=== PATIENT | male | born 1965 | race Caucasian/White ===

== ENCOUNTER 2016-07-16 06:19 | Emergency (ER) | payer OTHER ==
[~2016-07-16] VITALS: Ht 177.8 cm; Wt 164.5 kg
[~2016-07-16 06:19] MED LIST: AMTUNK PO; SUMA50TA15 PO; VERA120T15 PO; [UNRECOGNIZED DRUG - OTHER]
[2016-07-16 06:23] VITALS: TEMP 36.8; Ht 177.8 cm; Wt 164.5 kg
[2016-07-16] MEDS ORDERED: AMIT75TA2 PO (06:39)
[2016-07-16] MEDS ORDERED: NAPR-1169 PO (06:39)
[2016-07-16] MEDS ORDERED: SIMV20TA5 PO (06:39)
[2016-07-16] MEDS ORDERED: VERA120T8 PO (06:39)
[2016-07-16] MEDS ORDERED: APR25 PO (06:41)
[2016-07-16] MEDS ORDERED: OMEP40CA41 PO (06:41)
[2016-07-16] MEDS ORDERED: CETI10TA84 PO (06:41)
[2016-07-16] MEDS ORDERED: NIAC500T7 PO (06:41)
[2016-07-16] MEDS ORDERED: SERT-234 PO (06:42)
[2016-07-16] MEDS ORDERED: OXYC1TAB3 PO (06:42)
[2016-07-16] MEDS ORDERED: VITATAB11 PO (06:43)
[2016-07-16] MEDS ORDERED: LISI-787 PO (06:45)
[2016-07-16] MEDS ORDERED: ELET20TA PO (06:45)
[2016-07-16 06:47] VITALS: O2SAT 94
--- NOTE | 2016-07-16 06:49 | EMERGENCY ROOM VISIT NOTE ---
History Report prepared by Tonio: Bryson Polanco Under the Supervision of: Dr. Dima Marcos M.D. First contact with patient: 06:37 Chief Complaint: CARDIAC ASSESSMENT Stated Complaint: CHEST PAIN Nursing Triage Summary: pt brought to main ED B9 by ALS services. 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 state pt had sudden onset of chest pain ~4:30am, "squeezing" in chest bilaterally radiating to left arm, rates 5/10. pt associated SOB. pt has hx of elevated chol and HTN. ALS gave three nitros and 4 baby asa. upon assessment, pt alert and oriented x4. pt states pain is 1/10 at this time, denies SOB at this time. denies n/v/dizziness. breathing WNL. lungs clear in all pickett. History of Present Illness The patient is a 51 year old male who presents to the Emergency Room with complaints of improving chest pain starting prior to arrival. The patient currently rates his discomfort as a 1/10 in severity. 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 The patient additionally complains of shortness of breath. The patient states that he was given Nitro and aspirin, and these took his pain away. The patient additionally states that he had some left arm pain and tingling in his left fingers. The patient states that he has had a stress test done in the past. He states that he is a previous smoker about 28 years ago, and he denies having diabetes Source of History: patient Onset: prior to arrival Position: chest Symptom Intensity: 1/10 Timing: other (improving) Modifying Factors (Relieving): other (Nitro and aspirin) Associated Symptoms: + SOB Note: Associated symptoms: Left arm pain Review of Systems See HPI for pertinent positives & negatives. A total of 10 systems reviewed and were otherwise negative. Past Medical & Surgical Medical Problems: (1) Hypertension Family History Cancer Diabetes mellitus Heart disease Hypertension Social History Smoking Status: Never Smoker Occupation Status: employed Current/Historical Medications Scheduled Amitriptyline Hcl (Elavil), 75 MG PO HS Cetirizine (Zyrtec), 10 MG PO DAILY Hydralazine Hcl (Apresoline), 25 MG PO TID Lisinopril/Hctz (Zestoretic 20MG/12.5MG), 2 TAB PO DAILY Naproxen (Naprosyn), 500 MG PO BID Niacinamide (Niacin), 500 MG PO TID Omeprazole (Prilosec), 40 MG PO DAILY Sertraline (Zoloft), 100 MG PO DAILY Simvastatin (Zocor), 20 MG PO HS Verapamil Hcl (Calan Sr Ext Rel), 120 MG PO BID Vitamins W/ Lipotropics (Lipoflavonoid), 1 TAB PO DAILY Scheduled PRN Eletriptan (Relpax), 20 MG PO DIRECTED PRN for Migraine Oxycodone Immediate Rel Tab (Roxicodone Ir), 1 TAB PO Q4H PRN for Pain Allergies Coded Allergies: No Known Allergies (Verified , 07/16/16) Physical Exam Vital Signs Date Time Temp Pulse Resp B/P Pulse Ox O2 Delivery O2 Flow Rate FiO2 07/16/16 08:55 67 18 113/71 94 Room Air 07/16/16 08:43 65 07/16/16 07:08 65 20 103/57 94 Room Air 07/16/16 06:47 94 Room Air 07/16/16 06:37 79 07/16/16 06:34 96 Room Air 07/16/16 06:27 96 Room Air 07/16/16 06:23 36.8 79 18 122/73 96 Room Air Physical Exam GENERAL: Patient is a healthy-appearing well-nourished HEAD: Normocephalic atraumatic EYES: Ocular movements intact pupils equal and react to light OROPHARYNX mucous membranes are moist no exudates present no erythema or edema present NECK: Supple no nuchal rigidity CHEST: Good equal expansion LUNGS: Clear and equal to auscultation CARDIAC: Normal S1 and S2 ABDOMEN: Soft nontender no guarding BACK: No CVA tenderness EXTREMITIES: No pain upon palpation normal muscle strength in all groups no clubbing cyanosis or edema NEURO: Patient is following commands is answering questions appropriately. Alert and oriented x3 Cranial Nerves 2-12 grossly intact Medical Decision & Procedures ER Provider Diagnostic Interpretation: X-ray results as stated below per interpretation by me and the radiologist: CHEST ONE VIEW PORTABLE HISTORY: Atypical CHEST PAIN COMPARISON: None. FINDINGS: No pneumothorax. No pleural effusions. The heart is borderline enlarged. Mild central pulmonary vascular congestion without overt edema. No focal lung consolidations to suggest pneumonia. IMPRESSION: Borderline enlargement of the cardiac silhouette with mild central pulmonary vascular congestion without overt edema. Electronically signed by: Nathan Magdaleno M.D. 07/16/2016 7:53 AM Dictated Date/Time: 07/16/2016 7:52 AM Laboratory Results 07/16/16 06:00 Red Blood Count 4.92, Mean Corpuscular Volume 90.9, Mean Corpuscular Hemoglobin 32.7, Mean Corpuscular Hemoglobin Concent 36.0, Mean Platelet Volume 8.9, Neutrophils (%) (Auto) 50.5, Lymphocytes (%) (Auto) 33.2, Monocytes (%) (Auto) 11.9, Eosinophils (%) (Auto) 3.4, Basophils (%) (Auto) 0.7, Neutrophils # (Auto ) 3.40, Lymphocytes # (Auto) 2.24, Monocytes # (Auto) 0.80, Eosinophils # (Auto ) 0.23, Basophils # (Auto) 0.05 07/16/16 06:00 Test 07/16/16 06:00 07/16/16 06:54 07/16/16 07:05 White Blood Count 6.74 K/uL (4.8-10.8) Red Blood Count 4.92 M/uL (4.7-6.1) Hemoglobin 16.1 g/dL (14.0-18.0) Hematocrit 44.7 % (42-52) Mean Corpuscular Volume 90.9 fL (80-100) Mean Corpuscular Hemoglobin 32.7 pg (25-34) Mean Corpuscular Hemoglobin Concent 36.0 g/dl (32-36) Platelet Count 216 K/uL (130-400) Mean Platelet Volume 8.9 fL (7.4-10.4) Neutrophils (%) (Auto) 50.5 % Lymphocytes (%) (Auto) 33.2 % Monocytes (%) (Auto) 11.9 % Eosinophils (%) (Auto) 3.4 % Basophils (%) (Auto) 0.7 % Neutrophils # (Auto) 3.40 K/uL (1.4-6.5) Lymphocytes # (Auto) 2.24 K/uL (1.2-3.4) Monocytes # (Auto) 0.80 K/uL (0.11-0.59) Eosinophils # (Auto) 0.23 K/uL (0-0.5) Basophils # (Auto) 0.05 K/uL (0-0.2) RDW Standard Deviation 43.4 fL (36.4-46.3) RDW Coefficient of Variation 13.1 % (11.5-14.5) Immature Granulocyte % (Auto) 0.3 % Immature Granulocyte # (Auto) 0.02 K/uL (0.00-0.02) Est Creatinine Clear Calc Drug Dose 143.9 ml/min Estimated GFR () 109.7 Estimated GFR (Non- 94.6 BUN/Creatinine Ratio 10.7 (10-20) Calcium Level 9.4 mg/dl (8.5-10.1) Total Bilirubin 0.4 mg/dl (0.2-1) Direct Bilirubin < 0.1 mg/dl (0-0.2) Aspartate Amino Transf (AST/SGOT) 84 U/L (15-37) Alanine Aminotransferase (ALT/SGPT) 142 U/L (12-78) Alkaline Phosphatase 76 U/L (45-117) Total Creatine Kinase 201 U/L (39-308) Creatine Kinase MB 1.3 ng/ml (0.5-3.6) Creatine Kinase MB Ratio 0.6 (0-3.0) Troponin I < 0.015 ng/ml (0-0.045) Total Protein 8.2 gm/dl (6.4-8.2) Albumin 3.8 gm/dl (3.4-5.0) Lipase 263 U/L (73-393) Bedside Hemoglobin 16.0 g/dl (14.0-18.0) Bedside Hematocrit 47 % (42-52) Bedside Sodium 142 mEq/L (135-144) Bedside Potassium 3.5 mEq/L (3.3-5.0) Bedside Chloride 98 mEq/L (101-112) Bedside Total CO2 31 mEq/l (24-31) Anion Gap 17.0 mmol/L (16-25) Bedside Blood Urea Nitrogen 10 mg/dl (7-18) Bedside Creatinine 0.8 mg/dl (0.6-1.3) Bedside Glucose (other) 87 mg/dl (70-99) Bedside Ionized Calcium (Una) 1.22 mmol/l (1.12-1.32) Bedside D-Dimer 217 ng/mlFEU (0-450) Labs reviewed by ED physician. Medications Administered Medications (Trade) Dose Ordered Sig/Krupa Route Start Time Stop Time Status Last Admin Dose Admin Potassium Chloride (Klor-Con M10) 40 meq NOW STAT PO 07/16/16 07:03 07/16/16 07:04 DC 07/16/16 07:28 40 MEQ ECG Indication: chest pain Rate (beats per minute): 78 Rhythm: normal sinus Findings: no acute ischemic change, no ectopy ED Course 0637: Past medical records reviewed. The patient was evaluated in room B9. A complete history and physical examination was performed. 0703: Potassium Chloride 40meq PO 1840: Upon reexamination the patient is resting comfortably. I discussed results and treatment plan with the patient. He verbalizes agreement and understanding. The patient is ready for discharge. Medical Decision Differential diagnosis: Etiologies such as cardiac ischemia, aortic dissection, pulmonary embolism, pneumonia, pneumothorax, musculoskeletal, infections, pericarditis, myocarditis , esophageal rupture, gastrointestinal, as well as others were entertained. This is a 51-year-old male who presents emergency department complaining of chest pain. The patient's chest pain was relieved by nitroglycerin as well as aspirin. Upon arrival to the emergency department he is pain-free. He has a normal EKG as well as a normal CK-MB and troponin function. Based on these findings I strongly recommended that the patient be admitted to the hospitalist service however he is adamantly refusing. I recommended close follow-up with cardiology. Patient was in agreement with the treatment plan. Impression Primary Impression: Precordial chest pain Scribe Attestation The scribe's documentation has been prepared under my direction and personally reviewed by me in its entirety. I confirm that the note above accurately reflects all work, treatment, procedures, and medical decision making performed by me. Departure Information Dispostion Home / Self-Care Referrals James Jiménez M.D. (PCP) Forms IMPORTANT VISIT INFORMATION Patient Instructions Chest Pain - [facility], [facility] Additional Instructions Need follow up with DR Prakash/Chava/Garcia's office You have been examined and treated today on an emergency basis only. This is not a substitute for, or an effort to provide, complete comprehensive medical care. It is impossible to recognize and treat all injuries or illnesses in a single emergency department visit. It is therefore important that you follow up closely with Dr Sanchez. Call as soon as possible for an appointment. Thank you for your time and consideration. I look forward to speaking with you again soon. Please don't hesitate to call us if you have any questions.
[2016-07-16] MEDS ORDERED: POTASSIUM CHLORIDE 10 MEQ TABCR PO STA (07:03)
[2016-07-16 07:12] LABS: ISTAT CREATININE 0.8 mg/dl (0.6-1.3); ISTAT IONIZED CALCIUM 1.22 mmol/l (1.12-1.32)
[2016-07-16 07:14] LABS: BASO % 0.7 %; BASO ABS # 0.05 K/uL (0-0.2); COMPLETE YES; EOS % 3.4 %; HEMATOCRIT 44.7 % (42-52); IG% 0.3 %; LYMPH % 33.2 %; LYMPH ABS # 2.24 K/uL (1.2-3.4); MEAN CELL VOLUME 90.9 fL (80-100); MEAN CORPUSCULAR HEMOGLOBIN 32.7 pg (25-34); MEAN PLATELET VOLUME 8.9 fL (7.4-10.4); MONO % 11.9 %; NEUT % 50.5 %; PLATELET COUNT 216 K/uL (130-400); RED BLOOD COUNT 4.92 M/uL (4.7-6.1); WHITE BLOOD COUNT 6.74 K/uL (4.8-10.8)
[2016-07-16 07:43] LABS: ALT/SGPT 142 U/L (12-78); BLOOD UREA NITROGEN 10 mg/dl (7-18); BUN/CREATININE RATIO 10.7 (10-20); CALCIUM 9.4 mg/dl (8.5-10.1); CARBON DIOXIDE 29 mmol/L (21-32); CHLORIDE 102 mmol/L (98-107); CREATININE 0.92 mg/dl (0.60-1.40); GLUCOSE 84 mg/dl (70-99); POTASSIUM 3.4 mmol/L (3.5-5.1); SODIUM 140 mmol/L (136-145)
[2016-07-16 07:49] LABS: ALKALINE PHOSPHATASE 76 U/L (45-117); AST/SGOT 84 U/L (15-37); CKMB/CK RATIO 0.6 (0-3.0)
--- NOTE | 2016-07-16 07:54 | DIAGNOSTIC IMAGING REPORT ---
CHEST ONE VIEW PORTABLE HISTORY: Atypical CHEST PAIN COMPARISON: None. FINDINGS: No pneumothorax. No pleural effusions. The heart is borderline enlarged. Mild central pulmonary vascular congestion without overt edema. No focal lung consolidations to suggest pneumonia. IMPRESSION: Borderline enlargement of the cardiac silhouette with mild central pulmonary vascular congestion without overt edema. Electronically signed by: Nathan Magdaleno M.D. 07/16/2016 7:53 AM Dictated Date/Time: 07/16/2016 7:52 AM
[2016-07-16 08:55] VITALS: BP 113/71; PULSE 67; O2SAT 94
[2016-12-03] MEDS ORDERED: POLYSOL4 OP (15:29)
== END 2016-07-16 08:56 | disposition home or self-care (01) ==
LOC: C.EDB 06:19 → EDBD 06:19 → C.EDB 08:56
DX: R07.2 Precordial pain (principal); E78.00 Pure hypercholesterolemia, unspecified; I10 Essential (primary) hypertension; Z87.891 Personal history of nicotine dependence; Z83.3 Family history of diabetes mellitus; Z82.49 Family history of ischemic heart disease and other diseases of the circulatory system

== ENCOUNTER 2016-10-10 05:07 | Emergency (ER) | payer OTHER ==
[~2016-10-10] VITALS: Ht 180.3 cm; Wt 158.7 kg
[~2016-10-10 05:07] MED LIST changes: +AMIT75TA2 PO; -AMTUNK PO; +APR25 PO; +CETI10TA84 PO; +ELET20TA PO; +LISI-787 PO; +NAPR-1169 PO; +NIAC500T7 PO; +OMEP40CA41 PO; +OXYC1TAB3 PO; +SERT-234 PO; +SIMV20TA5 PO; -SUMA50TA15 PO; -VERA120T15 PO; +VERA120T8 PO; +VITATAB11 PO; -[UNRECOGNIZED DRUG - OTHER]
[2016-10-10 05:14] VITALS: TEMP 36.5; Ht 180.3 cm; Wt 158.7 kg
[2016-10-10] MEDS ORDERED: CEFTRIAXONE SOD INJ 1 GM ADDVIAL IV STA (05:25)
[2016-10-10] MEDS ORDERED: DIPHTHERIA/TETANUS/PERTUSSIS 0.5 ML SYR/VIAL IM. ONE (05:30)
[2016-10-10 05:45] LABS: BASO % 0.2 %; BASO ABS # 0.02 K/uL (0-0.2); COMPLETE YES; EOS % 1.5 %; HEMATOCRIT 40.7 % (42-52); IG% 0.3 %; LYMPH % 19.1 %; LYMPH ABS # 1.81 K/uL (1.2-3.4); MEAN CELL VOLUME 92.7 fL (80-100); MEAN CORPUSCULAR HEMOGLOBIN 32.8 pg (25-34); MEAN CORPUSCULAR HGB CONC 35.4 g/dl (32-36); MEAN PLATELET VOLUME 8.9 fL (7.4-10.4); MONO % 10.9 %; PLATELET COUNT 156 K/uL (130-400); RED BLOOD COUNT 4.39 M/uL (4.7-6.1); WHITE BLOOD COUNT 9.49 K/uL (4.8-10.8)
[2016-10-10 06:01] LABS: BUN/CREATININE RATIO 11.6 (10-20); CREATININE 0.97 mg/dl (0.60-1.40); POTASSIUM 3.4 mmol/L (3.5-5.1)
[2016-10-10] MEDS ORDERED: POTASSIUM CHLORIDE 10 MEQ TABCR PO STA (06:04)
--- NOTE | 2016-10-10 06:24 | DIAGNOSTIC IMAGING REPORT ---
ULTRASOUND LEFT VENOUS DOPP LOWER EXT UNILAT CLINICAL HISTORY: Left leg pain and swelling COMPARISON STUDY: No previous studies for comparison. FINDINGS: Real-time and color flow Doppler imaging were performed. Flow was seen within the femoral, popliteal and calf veins with no intraluminal thrombus demonstrated. The saphenous vein is patent. Incidental note is made of a prominent fatty lymph node within the left groin measuring 59 x 21 x 58 mm. IMPRESSION: No evidence of left lower extremity DVT. Electronically signed by: Kirt Workman M.D. 10/10/2016 6:23 AM Dictated Date/Time: 10/10/2016 6:22 AM
--- NOTE | 2016-10-10 06:33 | EMERGENCY ROOM VISIT NOTE ---
History First contact with patient: 05:20 Chief Complaint: LEG PAIN,LEG INJURY Stated Complaint: LEFT LEG IS RED AND WARM History of Present Illness The patient is a 51 year old male who presents to the Emergency Room with complaints of left leg pain and swelling for the past day that is steadily getting worse. Patient called the family care doctor yesterday and was advised to go the ER. Tetanus is out of date. Patient denies chest pain, dyspnea, fever, chills, abdominal pain, injury to the area. He does not smoke. No history of PE or DVT. No recent antibiotics. No diabetes. Review of Systems See HPI for pertinent positives & negatives. A total of 10 systems reviewed and were otherwise negative. Past Medical/Surgical History Medical Problems: (1) Hypertension Family History Cancer Diabetes mellitus Heart disease Hypertension Social History Smoking Status: Former Smoker Drug Use: none Marital Status: Housing Status: lives with family Occupation Status: employed Current/Historical Medications Scheduled Amitriptyline Hcl (Elavil), 75 MG PO HS Cetirizine (Zyrtec), 10 MG PO DAILY Hydralazine Hcl (Apresoline), 25 MG PO TID Lisinopril/Hctz (Zestoretic 20MG/12.5MG), 2 TAB PO DAILY Naproxen (Naprosyn), 500 MG PO BID Niacinamide (Niacin), 500 MG PO TID Omeprazole (Prilosec), 40 MG PO DAILY Sertraline (Zoloft), 100 MG PO DAILY Simvastatin (Zocor), 20 MG PO HS Verapamil Hcl (Calan Sr Ext Rel), 120 MG PO BID Vitamins W/ Lipotropics (Lipoflavonoid), 1 TAB PO DAILY Scheduled PRN Eletriptan (Relpax), 20 MG PO DIRECTED PRN for Migraine Oxycodone Immediate Rel Tab (Roxicodone Ir), 1 TAB PO Q4H PRN for Pain Allergies Coded Allergies: No Known Allergies (Verified , 10/10/16) Physical Exam Vital Signs Date Time Temp Pulse Resp B/P Pulse Ox O2 Delivery O2 Flow Rate FiO2 10/10/16 05:14 36.5 70 18 188/110 96 Room Air Physical Exam VITALS: Vitals are noted on the nurse's note and reviewed by myself. Vital signs hypertensive. GENERAL: Pleasant morbidly obese male, in no acute distress, nondiaphoretic, well-developed well-nourished. SKIN: The skin was without rashes, or bruising. There is no tenting of the skin. Capillary reflex less than 2 seconds. HEAD: Normocephalic atraumatic. EARS: External auditory canals clear, tympanic membranes pearly williamson without erythema or effusion bilaterally. EYES: Pupils equal round and reactive to light and accommodation. Conjunctivae without injection, sclerae without icterus. Extraocular movements intact. NOSE: Patent, turbinates without inflammation or discharge. MOUTH: Mucous membranes moist. Pharynx without erythema or exudate. Uvula midline. Airway patent. Tongue does not deviate. NECK: Supple without nuchal rigidity. No lymphadenopathy. No thyromegaly. Cervical spine is nontender. No JVD. HEART: Regular rate and rhythm without murmurs gallops or rubs. LUNGS: Clear to auscultation bilaterally without wheezes, rales or rhonchi. No dullness to percussion. No retractions or accessory muscle use. ABDOMEN: Positive bowel sounds x 4. Normal tympanic percussion. Soft, protuberant, obese, nontender, without masses or organomegaly. Dale sign negative. No guarding or rebound tenderness. MUSCULOSKELETAL: No muscle atrophy noted. Left lower leg erythematous and edematous concerning for cellulitis, +1 pitting edema up to the mid tib-fib bilaterally. Pedal pulses +2 equal present bilaterally NEURO: Patient was alert and oriented to person place and time. Normal sensation to light and sharp touch. No focal neurological deficits. Medical Decision & Procedures Laboratory Results 10/10/16 05:37 Red Blood Count 4.39, Mean Corpuscular Volume 92.7, Mean Corpuscular Hemoglobin 32.8, Mean Corpuscular Hemoglobin Concent 35.4, Mean Platelet Volume 8.9, Neutrophils (%) (Auto) 68.0, Lymphocytes (%) (Auto) 19.1, Monocytes (%) (Auto) 10.9, Eosinophils (%) (Auto) 1.5, Basophils (%) (Auto) 0.2, Neutrophils # (Auto ) 6.46, Lymphocytes # (Auto) 1.81, Monocytes # (Auto) 1.03, Eosinophils # (Auto ) 0.14, Basophils # (Auto) 0.02 10/10/16 05:37 Test 10/10/16 05:37 10/10/16 05:41 White Blood Count 9.49 K/uL (4.8-10.8) Red Blood Count 4.39 M/uL (4.7-6.1) Hemoglobin 14.4 g/dL (14.0-18.0) Hematocrit 40.7 % (42-52) Mean Corpuscular Volume 92.7 fL (80-100) Mean Corpuscular Hemoglobin 32.8 pg (25-34) Mean Corpuscular Hemoglobin Concent 35.4 g/dl (32-36) Platelet Count 156 K/uL (130-400) Mean Platelet Volume 8.9 fL (7.4-10.4) Neutrophils (%) (Auto) 68.0 % Lymphocytes (%) (Auto) 19.1 % Monocytes (%) (Auto) 10.9 % Eosinophils (%) (Auto) 1.5 % Basophils (%) (Auto) 0.2 % Neutrophils # (Auto) 6.46 K/uL (1.4-6.5) Lymphocytes # (Auto) 1.81 K/uL (1.2-3.4) Monocytes # (Auto) 1.03 K/uL (0.11-0.59) Eosinophils # (Auto) 0.14 K/uL (0-0.5) Basophils # (Auto) 0.02 K/uL (0-0.2) RDW Standard Deviation 45.3 fL (36.4-46.3) RDW Coefficient of Variation 13.3 % (11.5-14.5) Immature Granulocyte % (Auto) 0.3 % Immature Granulocyte # (Auto) 0.03 K/uL (0.00-0.02) Anion Gap 5.0 mmol/L (3-11) Est Creatinine Clear Calc Drug Dose 135.3 ml/min Estimated GFR () 102.9 Estimated GFR (Non- 88.8 BUN/Creatinine Ratio 11.6 (10-20) Calcium Level 9.0 mg/dl (8.5-10.1) Bedside Lactic Acid Venous 0.55 mmol/L (0.90-1.70) Medications Administered Medications (Trade) Dose Ordered Sig/Krupa Route Start Time Stop Time Status Last Admin Dose Admin Ceftriaxone Sodium (Rocephin Inj) 1 gm NOW STAT IV 10/10/16 05:25 10/10/16 05:26 DC 10/10/16 05:48 1 GM Diphtheria/ Pertussis/Tetanus Vacc (Adacel Inj) 0.5 ml ONCE ONCE IM. 10/10/16 05:30 10/10/16 05:31 DC 10/10/16 05:49 0.5 ML ED Course Prior records reviewed and summarized as above. Triage Nursing notes reviewed. Additional history obtained from family The patient's history was concerning for swelling and redness of the skin. Differential diagnosis: Etiologies such as cellulitis, abscess, MRSA infection, DVT, necrotizing fasciitis, dermatitis, drug eruption, as well as others were entertained.. Physical examination: The physical examination was consistent with cellulitis ER treatment provided: Rocephin, tetanus On reassessment the patient felt better. Diagnostics interpreted by me: The labs revealed no worrisome leukocytosis. Stable H&H. Negative lactic acid Imaging studies: ULTRASOUND LEFT VENOUS DOPP LOWER EXT UNILAT CLINICAL HISTORY: Left leg pain and swelling COMPARISON STUDY: No previous studies for comparison. FINDINGS: Real-time and color flow Doppler imaging were performed. Flow was seen within the femoral, popliteal and calf veins with no intraluminal thrombus demonstrated. The saphenous vein is patent. Incidental note is made of a prominent fatty lymph node within the left groin measuring 59 x 21 x 58 mm. IMPRESSION: No evidence of left lower extremity DVT. Electronically signed by: Kirt Workman M.D. This appears to be isolated cellulitis. Patient was afebrile and nontoxic. He did not want to be admitted to the hospital. I felt this is reasonable. He was advised take antiemetics as directed and to follow-up tomorrow family care for reevaluation or here in the ER sooner for fevers, spreading infection, worsening signs or symptoms or as needed. Patient was advised to monitor his blood pressure. By the evaluation outlined above emergent etiologies such as abscess, necrotizing fasciitis, DVT, as well as others were deemed relatively unlikely. The pt informed about the findings as listed above. All questions were answered and pleased with the treatment. Return instructions were outlined and the patient was discharged in stable condition. Outpatient prescription management: Bactrim, Keflex Referral: The patient was referred back to primary care physician for follow-up in 2 to 3 days for a recheck of the current condition. Case reviewed with my attending Medical Decision As above Impression Primary Impression: Cellulitis of left lower leg Departure Information Dispostion Home / Self-Care Condition GOOD Referrals Ryan Sanchez M.D. (PCP) Patient Instructions [facility] Additional Instructions Monitor your blood pressure. It was high today. Cephalexin(Keflex) 500mg: Take one pill four times daily for 10 days for your skin infection. All antibiotics can cause diarrhea. If this occurs and you feel worse or it does not resolve in 1-2 days follow up with your doctor or return to the Emergency Department as this could be signs of serious underlying problems. Any medication can cause an allergic reaction, stop the pills immediately and return to the ER for rash, hives, breathing difficulties, or swelling. Trimethoprim-Sulfamethoxazole(Bactrim DS): Take one pill twice daily for 10 days for your skin infection. All antibiotics can cause diarrhea. If this occurs and you feel worse or it does not resolve in 1-2 days follow up with your doctor or return to the Emergency Department as this could be signs of serious underlying problems. Any medication can cause an allergic reaction, stop the pills immediately and return to the ER for rash, hives, breathing difficulties, or swelling. Ibuprofen(Motrin, Advil) may be used for fever or pain. Use 600mg every six hours as needed. Take with food. Avoid using more than 2400mg in a 24 hour period. Do not use 2400mg per day for more than three consecutive days without physician direction. Prolonged inappropriate use can lead to stomach upset or ulcers. (AND/OR) Acetaminophen(Tylenol) may be used for fever or pain. Use 1000mg every six hours as needed. Avoid using more than 3000mg in a 24 hour period. Warm compresses to the affected area 4 times daily for 15-20 minutes. Rest and drink plenty of fluids. Continue current medications. Return to the ER for severe pain, persistent fevers, spreading redness, or any worsening of your condition. Follow up with your primary physician within 2-3 days for a recheck of the current condition.
[2016-10-10 06:35] VITALS: BP 162/96; PULSE 76; O2SAT 97
[2016-10-10] MEDS ORDERED: SULF800T23 PO (06:37)
[2016-10-10] MEDS ORDERED: CEPH500C2 PO (06:37)
[2016-10-10] MEDS ORDERED: CEPHALEXIN 500MG HOME PACK 1 EA BTL PO ONE (06:45)
[2016-10-10] MEDS ORDERED: SEPTRA DS HOME PACK 1 EA VIAL PO ONE (06:45)
[2016-10-10] MEDS ORDERED: MECL-91 PO (06:52)
[2016-10-10] MEDS ORDERED: NTRGSL/4 UT (06:52)
[2016-12-03] MEDS ORDERED: POLYSOL4 OP (15:29)
== END 2016-10-10 06:50 | disposition home or self-care (01) ==
LOC: C.EDB 05:08 → C.EDA 06:50
DX: L03.116 Cellulitis of left lower limb (principal); I10 Essential (primary) hypertension; Z80.9 Family history of malignant neoplasm, unspecified; Z83.3 Family history of diabetes mellitus; Z82.49 Family history of ischemic heart disease and other diseases of the circulatory system; Z87.891 Personal history of nicotine dependence; Z79.899 Other long term (current) drug therapy

== ENCOUNTER → 2016-12-05 | Day surgery (SDC) | payer OTHER ==
[2016-12-03 15:08] VITALS: Ht 177.8 cm; Wt 162.7 kg
[~2016-12-05] VITALS: Ht 177.8 cm; Wt 162.7 kg
[~2016-12-05] MED LIST changes: +LABETALOL HCL IV 5 MG/ML 20ML IV ONE; +LIDOCAINE HCL 2% 2 ML VIAL (20MG/ML) ONE; +MECL-91 PO; +MIDAZOLAM HCL 1 MG/ML 2ML VIAL ONE; +NTRGSL/4 UT; -OMEP40CA41 PO; +POLYSOL4 OP; +PROPOFOL IV EMULSION 10 MG/ML 20 ML VIAL IV ONE; -SIMV20TA5 PO; +SODIUM CHLORIDE 0.9% 500ML 500 ML IV ONE
--- NOTE | 2016-12-05 09:09 | Endo History and Physical ---
History & Physical Date of Service: Dec 05, 2016. Chief Complaint: Diarrhea Referring Physician: Ryan Sanchez History of Present Illness Six months of diarrhea, family history of colon cancer Past Surgical History Hx Cardiac Surgery: No Hx Internal Defibrillator: No Hx Pacemaker: No Hx Abdominal Surgery: No Hx of Implantable Prosthesis: No Hx Post-Op Nausea and Vomiting: No Hx Cancer Surgery: No Hx Thoracic Surgery: No Hx Orthopedic: Yes (CTR, KNEE ARTHROSCOPY) Hx Urinary Tract Surgery: No Family History None Social History Smoking Status: Former Smoker Hx Substance Use: No Hx Alcohol Use: No Allergies Coded Allergies: No Known Allergies (Verified , 12/03/16) Current Medications Reported Home Medications Medications Dose Route/Sig Max Daily Dose Days Date Category Dose Instructions Systane (Polyethylene Glycol-Propylene) 1 Brandie Brandie 1 Drops OP QID 12/03/16 Reported Meclizine 25 (Meclizine HCl) 25 Mg Tab 25 Mg PO TID PRN 10/10/16 Reported Nitrostat (Nitroglycerin) 0.4 Mg Tab 0.4 Mg UT UD PRN 10/10/16 Reported Relpax (Eletriptan) 20 Mg Tab 20 Mg PO DIRECTED PRN 07/16/16 Reported take 1 as needed and may repeat in 2 hours if necessary Zestoretic 20MG/12.5MG (HCTZ/Lisinopril) Tab 2 Tab PO QAM 07/16/16 Reported Lipoflavonoid (Vitamins W/ Lipotropics) 1 Tab Tab 1 Tab PO DAILY 07/16/16 Reported Roxicodone Ir (Oxycodone HCl) 5 Mg Tab 1 Tab PO Q4H PRN 07/16/16 Reported Zoloft (Sertraline HCl) 100 Mg Tab 100 Mg PO QAM 07/16/16 Reported Apresoline (Hydralazine Hcl) 25 Mg Tab 25 Mg PO TID 07/16/16 Reported Niacin (Niacinamide) 500 Mg Tab 500 Mg PO TID 07/16/16 Reported Zyrtec (Cetirizine HCl) 10 Mg Tab 10 Mg PO QAM 07/16/16 Reported Naprosyn (Naproxen) 500 Mg Tab 500 Mg PO BID 07/16/16 Reported take with food Elavil (Amitriptyline Hcl) 75 Mg Tab 75 Mg PO HS 07/16/16 Reported Calan Sr Ext Rel (Verapamil Hcl) 120 Mg Tab 120 Mg PO BID 07/16/16 Reported Vital Signs Weight (Kilograms): 162.73 Height (Feet): 5 Height (Inches): 10 Date Time Temp Pulse Resp B/P (MAP) Pulse Ox O2 Delivery O2 Flow Rate FiO2 12/05/16 08:16 36.8 61 18 203/116 (145) 96 Room Air Physical Exam General Appearance: WD/WN, no apparent distress Respiratory/Chest: Auscultation: breath sounds normal, no wheezing Cardiovascular: Heart Auscultation: RRR, no murmurs Abdomen: Inspection & Palpation: soft, no tenderness, guarding & rebound Assessment and Plan Colonoscopy today.
--- NOTE | 2016-12-05 10:04 | Discharge Instructions ---
Endoscopy Patient Instructions Date / Procedure(s) Performed Dec 05, 2016. Colonoscopy Allergy Information Coded Allergies: No Known Allergies (Verified , 12/03/16) Discharge Date / Findings Dec 05, 2016. Polyp, diverticulosis. Biopsies pending. Medication Instructions Restart Stopped Medication(s): Restart medications today. Provider Instructions Activity Restrictions - No exercising or heavy lifting for 24 hours. - Do not drink alcohol the day of the procedure. - Do not drive a car or operate machinery until the day after the procedure. - Do not make any important decisions or sign important papers in 24 hours after the procedure. Following Day: - Return to full activity which may include returning to work/school. Diet Start your diet with liquids and light foods (jello, soup, juice, toast). Then eat your usual diet if not nauseated. Treatment For Common After Affects For mild abdominal pain, bloating, or excessive gas: - Rest - Eat lightly - Lie on right side Follow-Up Information Follow-up with Ryan Sanchez as scheduled Anesthesia Information What You Should Know You have had a procedure that required some medicine to reduce anxiety and discomfort. This treatment is called moderate sedation. After receiving the treatment, you may be sleepy, but you will be able to breathe on your own. The effects of the treatment may last for several hours. Follow these instructions along with Activity/Diet recommendations noted above: * Do NOT do anything where dizziness or clumsiness would be dangerous. * Rest quietly at home today, then you can be up and about tomorrow. * Have a responsible person stay with you the rest of today. * You may have had an I.V. today. If so, you may take the dressing off later today. Recommendations Call your doctor if: * Trouble breathing * Continuous vomiting for more than 24 hours * Temperature above 101 degrees * Severe abdominal pain or bloating * Pain not relieved by pain medicine ordered * There is increased drainage or redness from any incision * A large amount of rectal bleeding greater than 2-3 tablespoons. (If you had a polyp/s removed or have hemorrhoids, a small amount of blood - from the rectum is to be expected.) * You have any unanswered questions or concerns. IN THE EVENT OF A SERIOUS EMERGENCY, GO TO THE NEAREST EMERGENCY ROOM Your discharge instructions were prepared by provider Manuel Castellanos. Patient Instructions Signature Page Wang Shepard Patient (or Guardian) Signature/Date: I have read and understand the instructions given to me by my caregivers. Caregiver/RN/Doctor Signature/Date: The above-named patient and/or guardian has received patient instructions on this date. + Original Patient Signature Page (only) stays with chart. Please make copy for patient.
--- NOTE | 2016-12-05 10:09 | Anesthesiology Progress Note ---
Anesthesia Post Op Note Date & Time Dec 05, 2016 at 10:09 Vital Signs Pain Intensity: 8 Vital Signs Past 12 Hours Date Time Temp Pulse Resp B/P (MAP) Pulse Ox O2 Delivery O2 Flow Rate FiO2 12/05/16 08:16 36.8 61 18 203/116 (145) 96 Room Air Notes Mental Status: alert / awake / arousable, participated in evaluation Pt Amnestic to Procedure: Yes Nausea / Vomiting: adequately controlled Pain: adequately controlled Airway Patency, RR, SpO2: stable & adequate BP & HR: stable & adequate Hydration State: stable & adequate Anesthetic Complications: no major complications apparent
[2016-12-05 10:32] VITALS: BP 159/91; PULSE 54; O2SAT 95
--- NOTE | 2016-12-05 10:42 | GI REPORT ---
Procedure Date: 12/05/2016 9:13 AM Procedure: Colonoscopy Indications: Screening in patient at increased risk: Colorectal cancer in father 60 or older, Incidental - Chronic diarrhea Medicines: Propofol per Anesthesia Complications: No immediate complications. Estimated blood loss: None. Estimated Blood Loss: Estimated blood loss: none. Procedure: Pre-Anesthesia Assessment: - Prior to the procedure, a History and Physical was performed, and patient medications, allergies and sensitivities were reviewed. The patient's tolerance of previous anesthesia was reviewed. - ASA Grade Assessment: III - A patient with severe systemic disease. After I obtained informed consent, the scope was passed under direct vision. Throughout the procedure, the patient's blood pressure, pulse, and oxygen saturations were monitored continuously. The On-site loaner was introduced through the anus and advanced to the terminal ileum, with identification of the appendiceal orifice and IC valve. The colonoscopy was performed without difficulty. The patient tolerated the procedure well. The quality of the bowel preparation was adequate to identify polyps 6 mm and larger in size. Findings: A 5 mm polyp was found in the ascending colon. The polyp was flat. The polyp was removed with a cold snare. Resection and retrieval were complete. Multiple diverticula were found in the sigmoid colon. Normal mucosa was found in the entire colon. Biopsies for histology were taken with a cold forceps from the entire colon for evaluation of microscopic colitis. Fluid aspiration was performed through the scope suction channel. The amount of fluid collected was 10 mL. Sample(s) were sent for bacterial cultures, Clostridium difficile and ova and parasites. Verification of patient identification for the specimens was done by the physician and nurse using the patient's name, date and medical record number. Impression: - One 5 mm polyp in the ascending colon, removed with a cold snare. Resected and retrieved. - Diverticulosis in the sigmoid colon. - Normal mucosa in the entire examined colon. Biopsied. Fluid aspiration performed. - The colon was otherwise normal to the terminal ileum with retroflexed views of the colon and terminal ileum. Recommendation: - Await pathology results. - Use Citrucel one tablespoon PO daily. - Repeat colonoscopy in 3 - 5 years for surveillance based on pathology results. - Discharge patient to home (with escort). Manuel Castellanos M.D. Manuel Castellanos MD 12/05/2016 9:55:33 AM This report has been signed electronically. Note Initiated On: 12/05/2016 9:13 AM I attest to the content of the Intraoperative Record and orders documented therein, exceptions below
[2016-12-08 22:12] LABS: CRYPTOSPORIDIUM AG TC 37213 NOT DETECTED (NOT DETECTED); O&P GIARDIA AG NOT DETECTED (NOT DETECTED)
== END | disposition home or self-care (01) ==
LOC: C.GI 07:24
PROVIDERS: ATTEND Internal Medicine Gastroenterology
DX: Z12.11 Encounter for screening for malignant neoplasm of colon (principal); D12.2 Benign neoplasm of ascending colon; K57.30 Diverticulosis of large intestine without perforation or abscess without bleeding; K63.89 Other specified diseases of intestine; Z80.0 Family history of malignant neoplasm of digestive organs; Z87.891 Personal history of nicotine dependence; Z79.899 Other long term (current) drug therapy

== ENCOUNTER 2017-08-12 05:07 | Day surgery (SDC) | payer OTHER ==
[2017-08-11 09:23] VITALS: BMI 48.0
[~2017-08-12] VITALS: Ht 177.8 cm; Wt 152.7 kg
[~2017-08-12 05:07] MED LIST changes: +BUPR-79 PO; +FURO-85 PO; -LABETALOL HCL IV 5 MG/ML 20ML IV ONE; -LIDOCAINE HCL 2% 2 ML VIAL (20MG/ML) ONE; -LISI-787 PO; +LSN/2025 PO; -MIDAZOLAM HCL 1 MG/ML 2ML VIAL ONE; +MONT1TAB5 PO; +OXYC-57 PO; -OXYC1TAB3 PO; +POTA20TA16 PO; -PROPOFOL IV EMULSION 10 MG/ML 20 ML VIAL IV ONE; +SIMV20TA2 PO; -SODIUM CHLORIDE 0.9% 500ML 500 ML IV ONE; -VITATAB11 PO; +VNTHFA/IN INH
[2017-08-12 05:48] VITALS: BP 160/93; PULSE 58; TEMP 36.6; O2SAT 96; Ht 177.8 cm; Wt 152.7 kg
[2017-08-12] MEDS ORDERED: LACTATED RINGER'S 1000ML 1,000 ML IV SCH (06:00)
--- NOTE | 2017-08-12 06:51 | History & Physical Bridge Note ---
H&P Re-Evaluation Bridge Note: I have examined the patient, reviewed the History & Physical and in the interval since the performance of the History & Physical I have noted the following changes of clinical significance: No changes noted
[2017-08-12] MEDS ORDERED: FENTANYL CITRATE INJ 50 MCG/1 ML 2 ML VIAL ONE (06:55)
[2017-08-12] MEDS ORDERED: MIDAZOLAM HCL 1 MG/ML 2ML VIAL ONE (06:56)
[2017-08-12] MEDS ORDERED: EpHEDrine SULFATE INJ 50 MG/ML AMP IV PRN (07:00)
[2017-08-12] MEDS ORDERED: ONDANSETRON INJ 2 MG/ML 2 ML VIAL IV PRN (07:00)
[2017-08-12] MEDS ORDERED: ATROPINE SULFATE 0.1 MG/ML 5ML SYR IV PRN (07:00)
--- NOTE | 2017-08-12 07:17 | Discharge Instructions ---
Discharge Instructions Date of Service Aug 12, 2017. Visit Reason for Visit: Mediastinal Adenopathy Discharge Discharge Diagnosis / Problem: Mediastinal Adenopathy Discharge Goals Goal(s): Learn about illness Activity Recommendations Activity Limitations: as noted below 1. You may remove dressing in 3 days and shower thereafter. No tub baths. 2. Do not drive for 2-3 days. Anesthesia . Post Anesthesia Instructions: If you have had General Anesthesia or IV Sedation: * Do not drive today. * Resume driving when surgeon permits. * Do not make important decisions or sign legal documents today. * Call surgeon for: 1. Temperature elevations greater than 101 degrees F. 2. Uncontrollable pain. 3. Excessive bleeding. 4. Persistent nausea and vomiting. 5. Medication intolerance (nausea, vomiting or rash). * For nausea and vomiting use only clear liquids such as: tea, soda, bouillon until nausea subsides, then gradually increase diet as tolerated. * If you have any concerns or questions, call your surgeon's office. If physician is unavailable and it is an emergency, call 911 or go to the nearest emergency room. . Instructions / Follow-Up Instructions / Follow-Up 1. Keep your scheduled appointment with Dr. Dominguez on August 20, 2017 @10:30. Diet Recommendations Recommended Home Diet: resume previous diet Pending Studies Studies pending at discharge: no Medical Emergencies . Who to Call and When: Medical Emergencies: If at any time you feel your situation is an emergency, please call 911 immediately. . Non-Emergent Contact Non-Emergency issues call your: Surgeon Call Non-Emergent contact if: you have a fever, your pain is not controlled, wound has increased drainage . . "Provider Documentation" section prepared by Jun Headley. .
[2017-08-12] MEDS ORDERED: ROCURONIUM BROMIDE 10 MG/ML 5 ML VIAL IV ONE (07:47)
[2017-08-12] MEDS ORDERED: GLYCOPYRROLATE INJ 0.2 MG/ML VIAL ONE (07:47)
[2017-08-12] MEDS ORDERED: PROPOFOL IV EMULSION 10 MG/ML 20 ML VIAL IV ONE (07:47)
[2017-08-12] MEDS ORDERED: DEXAMETHASONE SOD INJ 4 MG/ML VIAL ONE (07:47)
[2017-08-12] MEDS ORDERED: LIDOCAINE HCL 2% 2 ML VIAL (20MG/ML) ONE (07:47)
[2017-08-12] MEDS ORDERED: ONDANSETRON INJ 2 MG/ML 2 ML VIAL ONE (07:47)
[2017-08-12] MEDS ORDERED: NEOSTIGMINE METHYLSULFATE 5 MG/5 ML SYR ONE (07:47)
[2017-08-12] MEDS ORDERED: SURGICEL ABSORB HEMOSTAT 2IN X 14IN TOP ONE (08:22)
--- NOTE | 2017-08-12 08:29 | [facility] Post Operative Brief Note ---
Immediate Operative Summary Operative Date Aug 12, 2017. Pre-Operative Diagnosis Marked mediastinal adenopathy Post-Operative Diagnosis Granulomatous disease Procedure(s) Performed Video Mediastinoscopy with Biopsy Surgeon Dr Dominguez Research Asst Surgeon(s) Reggie Headley PA-C Estimated Blood Loss 120ml Findings Consistent with Post-Op Diagnosis Specimens Frozen section #1 R4 lymph node sent out at 0801 Frozen section #2 R2 lymph node sent out at 0801 A. R4 lymph node B. R2 lymph node C. Level 7 lymph node Culture #1 mediastinal lymph nodes for gram stain, aerobic, anaerobic, fungal and AFB Anesthesia Type General
[2017-08-12] MEDS ORDERED: MoRPHine SULFATE 2 MG/ML CARP IV PRN (08:45)
[2017-08-12] MEDS ORDERED: OXYCODONE/ACETAMINOPHEN 5-325 TAB PO PRN (08:45)
[2017-08-12] MEDS: FENTANYL CITRATE INJ 50 MCG/1 ML 2 ML VIAL IV PRN ×2 (08:55→09:01)
--- NOTE | 2017-08-12 09:08 | OPERATIVE REPORT ---
DATE OF OPERATION: 08/12/2017 PREOPERATIVE DIAGNOSIS: Large mediastinal adenopathy. POSTOPERATIVE DIAGNOSIS: Granulomatous disease (mostly non-necrotizing with some areas of necrosis). PROCEDURE: Video mediastinoscopy, biopsy. SURGEON: Terrence Dominguez MD. SURVEYING CREW RODMAN: ELSY Abbott (Mr. Headley was present for the entire case and was instrumental in assisting as well and closed the skin at the conclusion). ANESTHESIA: General anesthesia with endotracheal intubation. INDICATION FOR PROCEDURE AND FINDINGS: Wang Sehpard is a 52-year-old male who has persistent dyspnea on exertion. He has had "my whole life in." He also has developed a cough and does have a history of cigarette smoking and when a x-ray showed possible interstitial lung disease, a CAT scan was obtained. This showed marked bulky adenopathy in the mediastinum. I evaluated him in the office this week. I was concerned he may have a lymphoma as he has night sweats also. He also has had weight loss. We elected to proceed with a video mediastinoscopy. DESCRIPTION OF PROCEDURE: On 08/12/2017, the patient underwent uncomplicated video mediastinoscopy. I biopsied the right level 2, right level 4 node in 2 areas as well as a level 7 node. Frozen section showed mostly non-necrotizing granulomas, although there were couple of areas of necrosis. We did send this for culture. Discussed this with Dr. Lucas Sen. He tolerated it well. DESCRIPTION OF THE PROCEDURE: The patient brought to operating room and laid in supine position. General anesthesia induced and endotracheal intubation was performed. After prepping and draping in usual sterile fashion, appropriate timeout was called. Prophylactic antibiotics were given. An incision was made one fingerbreadth above the sternal notch and this was dissected down to the pretracheal fascia. Went below the isthmus of the thyroid. It should be noted that the patient had distention of his superficial veins and there may have been some compression of his venous system due to this bulky adenopathy. There were some larger veins superficially which we avoided going in. Coming down, it could be seen there was a very hard right level 2 node which I biopsied several times. We also had a level 4 node along the right peritracheal area. There was also 1 more anterior and I biopsied these generously. Portions of this were sent for frozen section, the level 4 and level 2 nodes. I also biopsied the level 7. There really was very little bleeding noted in the areas of the biopsy. I packed a Ray-Fredrick packing while I was waiting for the frozen sections. Frozen section came back as representing probable non-necrotizing granulomas. I pulled the Ray-Fredrick out and we had some bleeding from the superficial veins. I put a couple of clips and then Bovied this and this controlled the bleeding nicely. I then removed the bronchoscope. There was no further bleeding. 3-0 Vicryl was used to close the strap muscles in a running fashion. I then used 4-0 Monocryl in running subcuticular fashion to approximate the wound edges. The patient tolerated it well and was extubated in the room. I attest to the content of the Intraoperative Record and any orders documented therein. Any exception s are noted below.
--- NOTE | 2017-08-12 09:09 | DIAGNOSTIC IMAGING REPORT ---
CHEST ONE VIEW PORTABLE HISTORY: 52 years-old Male mediastinoscopy mediastinal adenopathy status post mediastinoscopy COMPARISON: Chest radiograph 07/16/2016, CT chest 07/28/2017 TECHNIQUE: Portable AP view of the chest FINDINGS: Cardiac silhouette is enlarged. The patient is rotated to the right. Surgical clips now project over the upper mediastinum. There is no pneumothorax or large pleural effusion. Mediastinal widening compatible with adenopathy redemonstrated along with mild pulmonary vascular congestion and interstitial coarsening. Linear subsegmental right lateral midlung opacities suggest atelectasis. Bones of the chest appear grossly intact. IMPRESSION: 1. No evidence of postprocedural pneumothorax. 2. Persistent widening of the mediastinum compatible with patient's known adenopathy. 3. Cardiomegaly with pulmonary vascular congestion and bibasilar opacities suggesting atelectasis. The above report was generated using voice recognition software. It may contain grammatical, syntax or spelling errors. Electronically signed by: Avinash Urbina M.D. 08/12/2017 9:07 AM Dictated Date/Time: 08/12/2017 9:05 AM
[2017-08-12 09:27] VITALS: BP 158/78; PULSE 65; TEMP 36.6; O2SAT 94
--- NOTE | 2017-08-12 09:52 | Anesthesiology Progress Note ---
Anesthesia Post Op Note Date & Time Aug 12, 2017 at 09:52 Vital Signs Vital Signs Past 12 Hours Date Time Temp Pulse Resp B/P (MAP) Pulse Ox O2 Delivery O2 Flow Rate FiO2 08/12/17 09:17 16 08/12/17 09:16 36.2 155/99 08/12/17 09:12 72 18 98 08/12/17 09:12 72 18 08/12/17 09:11 150/92 08/12/17 09:07 68 12 98 08/12/17 09:07 68 12 08/12/17 09:06 159/85 08/12/17 09:02 69 10 08/12/17 09:02 69 10 97 08/12/17 09:01 131/79 08/12/17 08:57 77 18 98 08/12/17 08:57 77 18 08/12/17 08:56 150/99 08/12/17 08:52 79 20 98 08/12/17 08:52 79 20 08/12/17 08:51 159/90 08/12/17 08:50 77 16 159/90 98 Oxymask 7 08/12/17 08:42 36 85 16 160/92 98 Oxymask 7 08/12/17 05:48 36.6 58 20 160/93 (115) 96 Room Air Notes Mental Status: alert / awake / arousable, participated in evaluation Pt Amnestic to Procedure: Yes Nausea / Vomiting: adequately controlled Pain: adequately controlled Airway Patency, RR, SpO2: stable & adequate BP & HR: stable & adequate Hydration State: stable & adequate Anesthetic Complications: no major complications apparent
[2017-08-12 10:00] VITALS: BP 151/83; PULSE 74; O2SAT 97
[2017-08-12 10:29] VITALS: BP 147/82; PULSE 68; TEMP 36.8; O2SAT 92
== END 2017-08-12 10:40 | disposition home or self-care (01) ==
LOC: C.ACU 05:07
PROVIDERS: ATTEND Surgery
DX: I89.8 Other specified noninfective disorders of lymphatic vessels and lymph nodes (principal); J98.4 Other disorders of lung; R06.00 Dyspnea, unspecified; G47.33 Obstructive sleep apnea (adult) (pediatric); Z87.891 Personal history of nicotine dependence; Z98.890 Other specified postprocedural states; F32.9 Major depressive disorder, single episode, unspecified; Z68.42 Body mass index [BMI] 45.0-49.9, adult; E66.01 Morbid (severe) obesity due to excess calories; Z82.49 Family history of ischemic heart disease and other diseases of the circulatory system; Z80.42 Family history of malignant neoplasm of prostate; Z80.0 Family history of malignant neoplasm of digestive organs

== ENCOUNTER → 2017-10-12 | Outpatient (CLI) | payer OTHER ==
[~2017-10-12] MED LIST changes: -NIAC500T7 PO; +POTA-639 PO; -POTA20TA16 PO
--- NOTE | 2017-10-13 05:53 | PAP/PSG TECHNICIAN REPORT ---
[facility] Global Commodity Manager Polysomnogram Report Study name: None Report date: 10/13/2017 Study date: 10/12/2017 Referring Physician: Manuel Cramer MD Name: ZAIRA CROWLEY Interpreting Physician: Terrence Paez D.O. Date of : 1965 Global Commodity Manager: Quyen May [facility]. Sex: Male Age: 52 StudyType: PSG PAP Weight: 339 lbs Height: 52 years, Height 5' 10" BMI: 48.64 Medications: Amitriptyline 75 mg, Bupropion 150mg, Cetirizine 10 mg, Furosemide 20 mg, Hydralazine 50 mg, Lisinoprl-HCTZ 20-25 mg, Meclizine 25 mg, Montelukast Sodium 10 mg, Naproxen 500 mg, Niacin 500 mg, Nitroglycerin 0.4mg, Potassium Chloride 20 MEQ, Verapamil 120 mg, Zocor 20 mg, Zoloft 100 mg Patient History 52 yr. old male here for a BIPAP titration sleep study. Ky is currently on CPAP but is still having EDS. ESS 21/24. Parameters Monitored NPSG: E1-M2, E2-M1, Fp1-M2, Fp2-M1, F3-M2, F4-M2, F4-M1, C3-M2, C4-M2, C4-M1, O1-M2, O2-M2, O2-M1, T3-M2, T4-M1, P3-M2, P4-M1, CHIN1, CHIN2, HR, EKG, Legs, PFLOW, SNOR, FLOW, CFLOW, Tidal Volume, THOR, ABDO, SpO2, PLTH, CPRESS, ETCO2 Wave, ETCO2, pH Sleep Architecture Sleep Stages Time at Lights Off 9:42:49 PM STAGES Time (min.) TST (%) Time at Lights On 5:22:49 AM Wake 28.0 -- Total Recording Time (TRT) 460.00 min. N1 24.0 6 Total Sleep Period (TSP) 454.5 min. N2 279.0 65 Total Sleep Time (TST) 432.0min. N3 22.5 5 Awake Time 28.0 min. REM 106.5 25 Wake after Sleep Onset 22.5 min. Sleep Efficiency (SE) 94 % Sleep Onset Latency (BEATRIZ) 5.5 min. Number of Stage 1 Shifts None Awakenings 20 Stage Changes 76 Number of REM periods 6 REM 106.5 25 REM Latency 151.0 min. NREM 325.5 75 Body Position Analysis Supine Right Left Side Prone Vertical Total Sleep Time (min.) 164.9 127.7 151.0 278.66 0.0 3.6 Total Sleep Time (%) 35% 30% 35% 65 0% N/A% Total Sleep Time REM (min.) 39.5 51.5 15.5 None 0.0 0.0 Total Sleep Time NREM (min.) 113.8 76.2 135.5 None 0.0 0.0 Intermittent Wake (min.) 11.6 3.1 9.7 None 0.0 3.6 Total Sleep Period (%) 36% None None None None None Arousals Myoclonus (PLM) * Events Count Index Events Count Index Spontaneous 5 1 Events Awake (PLMW) 30 64.3 Respiratory 4 0.7 Events Asleep w/ Arousal (PLMA) 8 1.1 PLM 7 1 Events Asleep w/o Arousal (PLMS) 67 9.3 Snoring 7 1 Total Asleep 75 10.4 Total 23 3 Total 105 14 Respiratory Analysis * CA OA MA CH H RERA Total Count 0 4 0 0 34 1 38 Index 0.0 0.6 0.0 0 4.7 0 5.4 Mean Duration 0.0 16.6 0.0 0.00 26.3 12.0 24.9 Longest Duration 0.0 33.2 0.0 0.00 0.0 12.0 49.9 Respiratory Event Summary Total Supine ~Supine Right Left Prone REM NREM Apneas Count 4 4 0 0 0 N/A 2 2 Index 0.6 2 0 0.0 0.0 N/A 1 0 Hypopneas (4% Desat) Count 34 26 8 0 8 N/A 11 23 Index 4.7 10.2 2 0.0 3.2 N/A 6.2 4.2 Apneas & All Hypopneas Count 38 30 8 0 8 N/A 13 25 Index 5.3 12 2 0 3 N/A 7.3 4.6 Respiratory Events (Certified Professional Coder+All Hyp+RERA) Count 38 31 8 0 8 N/A 13 25 Index 5.4 12 2 0.0 3.2 N/A 7.3 4.8 Respiratory Related Arousal Count 4 31 0 0 0 N/A 1 4 Index 0.7 2 0 0 0 N/A 1 1 Snoring Analysis Supine Right Left Prone REM NREM Total Snore duration 31.5 min Snores count 564 2 764 N/A 73 1,257 1,330 Snore mean duration 1.4 Sec Snores index 221 1 304 N/A 41.1 231.7 184.7 TST with snoring (%) 7.3% Desaturation Event Summary: Minimum %SpO2 Event Count Mean/Min/Max Duration(sec.) Desaturation Index % Time In Bed > 90 40 30.2 / 10.8 / 58.5 7.6 69.2 86 - 90 4 32.9 / 12.0 / 54.5 1.7 30.8 81 - 85 0 N/A 0.0 0.1 76 - 80 0 N/A 0.0 0.0 71 - 75 0 N/A 0.0 0.0 66 - 70 0 N/A 0.0 0.0 61 - 65 0 N/A 0.0 0.0 56 - 60 0 N/A 0.0 0.0 51 - 55 0 N/A 0.0 0.0 < 50 0 N/A 0.0 0.0 Total REM NREM Awake <50% 0.0 min. 0.0 min. 0.0 min. 0.0 min. 51 - 60% 0.0 min. 0.0 min. 0.0 min. 0.0 min. 61 - 70% 0.0 min. 0.0 min. 0.0 min. 0.0 min. 71 - 80% 0.0 min. 0.0 min. 0.0 min. 0.0 min. 81 - 90% 141.3 min. 34.3 min. 105.7 min. 1.3 min. 91 - 100% 316.8 min. 72.2 min. 218.9 min. 25.7 min. Average 92 91 91 94 Minimum SpO2 82 85 82 87 Desaturation Event Index 5.7 7.9 5.2 4.3 # Desat. Events below 89% 9 4 5 N/A Time(%) with Saturation below 89% 4.9 1.1 3.8 0.1 Time(min.) with Saturation below 89% 22.4 4.9 17.2 0.3 Time (mins) REM (mins) NREM (mins) % of TST SpO2 Below 90% 28 12 N16 13.3 SpO2 Below 88% 5 0 0 0 Heart Rate Analysis Min (bpm) Max (bpm) Average (bpm) Awake 33 127 67 NREM 46 127 60 REM 46 77 56 Overall 46 127 59 Supplemental O2 Values Minimum O2 level: None Value Start Time End Time Global Commodity Manager Comments slept in the right, left, and supine positions. Cardiac arrhythmia noted. No PLMs noted. No bruxism noted. PAP initiated at an IPAP of +8 CMH2O and an EPAP of +4 CMH2O up-titrated to a level of: IPAP +16 CMH2O, EPAP +8 CMH20 BiFlex 2 , which nearly eliminated all respiratory events and snoring. Patients own Respironics DremWear was used during titration. did not wake to use the restroom during the night. stated, I tossed and turned a lot, I was not used to the bed. The final report will be interpreted and signed by a sleep physician. The completed physician report will then be placed in the patient medical record. Therapy Event: Therapy (cm H20) 0 8/4 9/4 10/4 11/4 12/4 Total Time at Pressure (min.) 2.3 20.0 38.5 46.8 13.0 13.4 TST at Pressure (min.) 0.0 13.3 38.5 39.2 10.5 13.4 # Periods 1 1 1 1 1 1 Sleep Onset (min.) N/A 3.2 0.0 0.0 2.5 0.0 REM Onset (min.) N/A N/A N/A N/A N/A N/A Sleep Efficiency % 0 66 100 83 81 100 Wakefulness (%) 100.0 33.6 0.0 16.1 18.9 0.0 Wakefulness (min.) 2.3 6.7 0.0 7.5 2.5 0.0 NREM 1 (%) 0.0 28.9 0.6 6.4 3.9 0.0 NREM 1 (min.) 0.0 5.8 0.2 3.0 0.5 0.0 NREM 2 (%) 0.0 37.5 93.5 67.3 77.2 100.0 NREM 2 (min.) 0.0 7.5 36.0 31.5 10.0 13.4 NREM 3 (%) 0.0 0.0 5.9 10.1 0.0 0.0 NREM 3 (min.) 0.0 0.0 2.3 4.7 0.0 0.0 REM (%) 0.0 0.0 0.0 0.0 0.0 0.0 REM (min.) 0.0 0.0 0.0 0.0 0.0 0.0 # Arousals N/A 5 0 5 1 1 Arousal Index N/A 22.6 0.0 7.6 5.7 4.5 # Snore N/A 103 524 268 43 103 Snore Index N/A 465.6 816.9 409.8 245.2 462.5 AHI N/A 4.5 3.1 19.9 5.7 18.0 AHI Supine N/A N/A N/A 29.3 5.7 18.0 AHI Non-Supine N/A 4.5 3.1 7.2 N/A N/A NREM AHI N/A 4.5 3.1 19.9 5.7 18.0 REM AHI N/A N/A N/A N/A N/A N/A RDI N/A 4.5 3.1 19.9 5.7 18.0 # Obstructive N/A 0 0 1 0 0 # Central Ap N/A 0 0 0 0 0 # Mixed N/A 0 0 0 0 0 # Hypopneas N/A 1 2 12 1 4 RERAS N/A 0 0 0 0 0 Total Respiratory Events N/A 1 2 13 1 4 Time Below SpO2 89.00% (min.) 0.0 0.4 1.7 0.3 0.1 0.1 Mean NREM SpO2 (%) N/A 92 90 93 95 94 Mean REM SpO2 (%) N/A N/A N/A N/A N/A N/A Mean Sleep SpO2 (%) N/A 92 90 93 95 94 Min NREM SpO2 (%) N/A 88 86 85 88 88 Min REM SpO2 (%) N/A N/A N/A N/A N/A N/A Position Supine (min.) 0.0 0.0 0.0 22.5 10.5 13.4 Position Non-supine (min.) 0.0 13.3 38.5 16.7 0.0 0.0 LM Index Sleep N/A 27.1 20.3 24.5 17.1 4.5 LM Index NREM N/A 27.1 20.3 24.5 17.1 4.5 LM Index REM N/A N/A N/A N/A N/A N/A Mean Heart Rate (bpm) N/A 67 67 63 59 59 Min Heart Rate (bpm) N/A 60 59 53 52 52 Therapy (cm H20) 13/4 14/6 15/6 16/7 16/8 Total Time at Pressure (min.) 23.6 19.9 12.9 191.2 78.5 TST at Pressure (min.) 22.1 19.4 12.9 185.2 77.5 # Periods 1 1 1 1 1 Sleep Onset (min.) 0.0 0.0 0.0 0.0 0.0 REM Onset (min.) 22.6 0.0 0.0 0.0 61.0 Sleep Efficiency % 93 97 100 96 98 Wakefulness (%) 6.4 2.5 0.0 3.1 1.3 Wakefulness (min.) 1.5 0.5 0.0 6.0 1.0 NREM 1 (%) 6.4 5.0 0.0 4.7 3.8 NREM 1 (min.) 1.5 1.0 0.0 9.0 3.0 NREM 2 (%) 83.2 0.0 0.0 53.3 75.2 NREM 2 (min.) 19.6 0.0 0.0 102.0 59.0 NREM 3 (%) 0.0 0.0 0.0 8.1 0.0 NREM 3 (min.) 0.0 0.0 0.0 15.5 0.0 REM (%) 4.1 92.5 100.0 30.7 19.7 REM (min.) 1.0 18.4 12.9 58.7 15.5 # Arousals 0 2 0 7 2 Arousal Index 0.0 6.2 0.0 2.3 1.5 # Snore 194 54 24 15 2 Snore Index 527.3 166.6 111.9 4.9 1.5 AHI 8.2 21.6 18.6 0.6 0.8 AHI Supine 8.2 21.6 18.6 0.0 N/A AHI Non-Supine N/A N/A N/A 0.9 0.8 NREM AHI 2.8 0.0 N/A 0.9 1.0 REM AHI 124.8 22.8 18.6 0.0 0.0 RDI 10.9 21.6 18.6 0.6 0.8 # Obstructive 3 0 0 0 0 # Central Ap 0 0 0 0 0 # Mixed 0 0 0 0 0 # Hypopneas 0 7 4 2 1 RERAS 1 0 0 0 0 Total Respiratory Events 4 7 4 2 1 Time Below SpO2 89.00% (min.) 0.0 2.2 0.5 0.7 16.3 Mean NREM SpO2 (%) 94 96 N/A 91 90 Mean REM SpO2 (%) 93 91 92 92 90 Mean Sleep SpO2 (%) 94 92 92 91 90 Min NREM SpO2 (%) 91 95 N/A 82 87 Min REM SpO2 (%) 89 85 87 88 88 Position Supine (min.) 22.1 19.4 12.9 52.6 0.0 Position Non-supine (min.) 0.0 0.0 0.0 132.7 77.5 LM Index Sleep 8.2 6.2 0.0 1.6 20.1 LM Index NREM 8.5 0.0 N/A 1.9 24.2 LM Index REM 0.0 6.5 0.0 1.0 3.9 Mean Heart Rate (bpm) 60 60 60 58 55 Min Heart Rate (bpm) 52 48 53 46 46
== END | disposition home or self-care (01) ==
LOC: C.NEUR 20:00
PROVIDERS: ATTEND Internal Medicine Pulmonary Disease
DX: G47.9 Sleep disorder, unspecified (principal); R59.0 Localized enlarged lymph nodes; D86.9 Sarcoidosis, unspecified; R05 Cough

== ENCOUNTER → 2017-10-21 | Outpatient (CLI) | payer OTHER ==
[2017-10-21 15:27] LABS: BASO % 0.4 %; BASO ABS # 0.02 K/uL (0-0.2); EOS % 5.1 %; EOS ABS # 0.26 K/uL (0-0.5); HEMATOCRIT 40.6 % (42-52); HEMOGLOBIN 14.2 g/dL (14.0-18.0); IG# 0.01 K/uL (0.00-0.02); LYMPH % 23.7 %; LYMPH ABS # 1.21 K/uL (1.2-3.4); MEAN CORPUSCULAR HEMOGLOBIN 31.1 pg (25-34); MEAN PLATELET VOLUME 8.9 fL (7.4-10.4); MONO ABS # 0.46 K/uL (0.11-0.59); NEUT % 61.6 %; NEUT ABS # 3.15 K/uL (1.4-6.5); PLATELET COUNT 178 K/uL (130-400); RED CELL DISTRIBUTION WIDTH CV 13.3 % (11.5-14.5); RED CELL DISTRIBUTION WIDTH SD 43.1 fL (36.4-46.3); WHITE BLOOD COUNT 5.11 K/uL (4.8-10.8)
[2017-10-21 15:55] LABS: ALBUMIN 3.6 gm/dl (3.4-5.0); ALKALINE PHOSPHATASE 54 U/L (45-117); ALT/SGPT 42 U/L (12-78); AST/SGOT 27 U/L (15-37); BLOOD UREA NITROGEN 17 mg/dl (7-18); CARBON DIOXIDE 25 mmol/L (21-32); CREATININE 0.94 mg/dl (0.60-1.40); GLUCOSE 108 mg/dl (70-99); POTASSIUM 3.6 mmol/L (3.5-5.1); SODIUM 141 mmol/L (136-145); TOTAL PROTEIN 7.8 gm/dl (6.4-8.2)
== END | disposition home or self-care (01) ==
LOC: C.LAB 14:18
PROVIDERS: ATTEND Internal Medicine Pulmonary Disease
DX: R59.0 Localized enlarged lymph nodes (principal); D86.9 Sarcoidosis, unspecified; R05 Cough